=== PATIENT | male | born 1975 | race Caucasian/White ===

== ENCOUNTER 2016-05-08 14:43 | Emergency (ER) ==
[2016-05-08 14:48] VITALS: BP 181/115; TEMP 98; BMI 26.5
--- NOTE | 2016-05-08 14:56 | ED.PDOC ---
General ED Provider: Dr. MARIANNE MARSHALL JR Chief Complaint: Nausea/Vomiting Stated Complaint: ag-vomiting diarrhea nasal/head congestion with loss of appetite[End]emesis x10 hourly or less bilious...fever, congestion, not feeling good . left ear hurting.[End]12 days 98.0 83 20 98% 181/115 09/28 Time Seen by Physician: 14:55 Information Source: Patient, Family Exam Limitations: No limitations Nursing and Triage Documentation Reviewed and Agree: No Review of Systems - Review Of Systems Constitutional: Reports: Chills, Malaise, Weakness Eyes: Reports: No symptoms Ears, Nose, Mouth, Throat: Reports: Nose discharge Respiratory: Reports: Cough Cardiac: Reports: No symptoms GI: Reports: Abdominal pain, Diarrhea, Nausea, Vomiting : Reports: No symptoms Musculoskeletal: Reports: No symptoms Skin: Reports: No symptoms Neurological: Reports: No symptoms Endocrine: Reports: No symptoms Hematologic/Lymphatic: Reports: No symptoms All Other Systems: Other Past Medical History - Past Medical History Previously Healthy: Yes Endocrine: Reports: None Cardiovascular: Reports: Hypertension Respiratory: Reports: None Hematological: Reports: None Gastrointestinal: Reports: None Genitourinary: Reports: Kidney stones Neuro/Psych: Reports: Anxiety, Depression Musculoskeletal: Reports: None Cancer: Reports: None - Surgical History General Surgical History: Reports: Other (nerve cauterization to back) - Family History Family History: Reports: None - Social History Smoking Status: Current some day smoker Hx Substance Use: No Alcohol Screening: Occasionally - Immunizations Tetanus Shot up to Date: Yes Physical Exam - Physical Exam Appearance: Ill-appearing Ill-appearing: Moderate Pain Distress: Moderate Eyes: SUZY, EOMI, Conjunctiva clear ENT: Ears normal, Nose normal, Oropharynx normal Neck: Supple Respiratory: Airway patent, Breath sounds clear, Breath sounds equal, Respirations nonlabored Cardiovascular: RRR, Pulses normal, No rub, No murmur GI/: Soft, Nontender, No masses, Bowel sounds normal, No Organomegaly Musculoskeletal: Normal strength, ROM intact, No edema, No calf tenderness Skin: Warm, Dry, Normal color Neurological: Sensation intact, Motor intact, Reflexes intact, Cranial nerves intact, Alert, Oriented Psychiatric: Affect appropriate, Mood appropriate Interpretation - Radiology Interpretation Radiology Interpretation By: Radiologist Radiology Results: Negative Exam Interpreted: CXR Critical Care Note - Critical Care Note Total Time (mins): 5 Course - Course Hematology/Chemistry: 05/08/16 15:20 05/08/16 15:20 Orders, Labs, Meds: Lab Review 05/08/16 05/08/16 05/08/16 15:20 15:45 18:00 WBC 12.77 H RBC 4.83 Hgb 14.8 Hct 43.0 MCV 89.0 MCH 30.6 MCHC 34.4 RDW Coeff of Leandro 13.4 Plt Count 355 Immature Gran % (Auto) 0.4 Neut % (Auto) 68.2 Lymph % (Auto) 25.1 Sullivan % (Auto) 5.2 Eos % (Auto) 0.7 Baso % (Auto) 0.4 Immature Gran # (Auto) 0.1 Neut # 8.7 H Lymph # 3.2 Sullivan # 0.7 Eos # 0.1 Baso # 0.1 Sodium 138 Potassium 4.5 Chloride 103 Carbon Dioxide 23 Anion Gap 16.5 BUN 10 Creatinine 1.01 Estimated GFR (MDRD) 81.00 BUN/Creatinine Ratio 9.90 Glucose 94 Calcium 9.9 Total Bilirubin 0.64 AST 27 ALT 41 Alkaline Phosphatase 55 Total Protein 8.1 Albumin 4.6 Globulin 3.5 Albumin/Globulin Ratio 1.31 Amylase 98 Lipase 178 H Urine Color Yellow Urine Clarity Clear Urine pH 5.5 Ur Specific [place] 1.025 Urine Protein Negative Urine Glucose (UA) Negative Urine Ketones 1+ Urine Blood Negative Urine Nitrite Negative Urine Bilirubin Negative Urine Urobilinogen 0.2 Ur Leukocyte Esterase Negative Stl Occult Blood (IFOB) Negative Stool Occult Blood #2 No specimen received Stool Occult Blood #3 No specimen received H. pylori IgG Antibody Negative Orders Category Date Time Status C-DIFF MONITORING (NURSING) BID CARE 05/08/16 15:22 Active ED IV/MEDIPORT/POWERPORT .ONCE EMERGENCY 05/08/16 15:15 Active AMYLASE Stat LAB 05/08/16 15:20 Completed CBC W/ AUTO DIFF Stat LAB 05/08/16 15:20 Completed COMPREHENSIVE METABOLIC PANEL Stat LAB 05/08/16 15:20 Completed H. PYLORI SCREEN Stat LAB 05/08/16 15:20 Completed LIPASE Stat LAB 05/08/16 15:20 Completed OCCULT BLOOD, STOOL Stat LAB 05/08/16 18:00 Completed STOOL CULTURE Stat LAB 05/08/16 Ordered URINALYSIS C & S IF INDICATED Stat LAB 05/08/16 15:45 Completed cdiff [C. DIFFICILE] Routine LAB 05/08/16 15:21 Uncollected 0.9 % Sodium Chloride [Saline Flush] MEDS 05/08/16 15:15 Active 1 syr IVF PRN PRN Ciprofloxacin HCl [Cipro] MEDS 05/08/16 19:05 Discontinued 500 mg PO ONCE STA Ondansetron HCl/Pf [Zofran 4 mg/2 ml] MEDS 05/08/16 15:16 Discontinued 4 mg IVP ONCE STA Sodium Chloride 0.9% [Sodium Chloride] 1,000 ml MEDS 05/08/16 15:16 Discontinued IV BOLUS CHEST, 2 VIEWS PA & LAT Stat RADS 05/08/16 15:[address] ABDOMEN/PELVIS WO CONTRAST Stat RADS 05/08/16 15:15 Completed Medications Generic Name Dose Route Start Last Admin Trade Name Freq PRN Reason Stop Dose Admin Sodium Chloride 1 syr 05/08/16 15:15 05/08/16 15:57 Saline Flush IVF 1 syr PRN PRN Administration To flush IV Discontinued Medications Generic Name Dose Route Start Last Admin Trade Name Freq PRN Reason Stop Dose Admin Ciprofloxacin 500 mg 05/08/16 19:05 05/08/16 19:13 Cipro PO 05/08/16 19:06 500 mg ONCE STA Administration Sodium Chloride 1,000 mls @ 1,000 mls/hr 05/08/16 15:16 05/08/16 15:57 Sodium Chloride IV 05/08/16 16:15 1,000 mls/hr BOLUS STA Administration Ondansetron HCl 4 mg 05/08/16 15:16 05/08/16 15:57 Zofran 4 Mg/2 Ml IVP 05/08/16 15:17 4 mg ONCE STA Administration Vital Signs: Temp Pulse Resp BP Pulse Ox 05/08/16 14:45 98.0 F 83 20 181/115 H 98 Departure - Departure Time of Disposition: 16:31 Disposition: HOME SELF-CARE Discharge Problem: Gastroenteritis Instructions: Dehydration (ED), Gastroenteritis (ED) Condition: Fair Pt referred to PMD for follow-up: Yes Additional Instructions: PEPTOBISMOL AFTER EACH LOOSE STOOL UP TO 8 TIMES IN 24 HOURS cipro twice a day for one week CLEAR LIQUIDS FOR 12 HOURS AND UNTIL NAUSEA CONTROLLED ZOFRAN FOR NAUSEA OR MAY USE PHENERGAN FOR NAUSEA Prescriptions: Ciprofloxacin HCl [Cipro] 500 mg PO BID #14 tablet Ondansetron HCl [Zofran Tab] 4 mg PO QID PRN #12 tablet PRN Reason: Nausea / Vomiting Promethazine HCl [Phenergan Tab] 25 mg PO QID PRN #12 tablet PRN Reason: Nausea / Vomiting Allergies/Adverse Reactions: Allergies codeine Adverse Reaction (Verified 12/11/15 20:22) Hives Home Medications: Ambulatory Orders Clonazepam [Klonopin] 0.5 mg PO DAILY 06/30/15 Escitalopram Oxalate [Lexapro] 5 mg PO DAILY 06/30/15 Losartan Potassium [Cozaar] 50 mg PO DAILY 06/30/15 Ciprofloxacin HCl [Cipro] 500 mg PO BID #14 tablet 05/08/16 Ondansetron HCl [Zofran Tab] 4 mg PO QID PRN #12 tablet 05/08/16 Promethazine HCl [Phenergan Tab] 25 mg PO QID PRN #12 tablet 05/08/16
[2016-05-08] MEDS ORDERED: ZOFRAN 4 MG/2 ML IVP STA (15:16)
[2016-05-08] MEDS ORDERED: SODIUM CHLORIDE 1,000 ML IV STA (15:16)
[2016-05-08 15:28] LABS: BASOPHILS # (AUTO) 0.1 K/uL (0-0.2); BASOPHILS % (AUTO) 0.4 % (0.0-3.0); EOSINOPHILS # (AUTO) 0.1 K/ul (0.0-0.7); EOSINOPHILS % (AUTO) 0.7 % (0.0-7.0); HEMOGLOBIN 14.8 g/dl (14.0-18.0); IMMATURE GRANULOCYTE % (AUTO) 0.4 % (0.0-5.0); LYMPHOCYTES # (AUTO) 3.2 K/uL (0.60-3.4); LYMPHOCYTES % (AUTO) 25.1 (10.0-50.0); MEAN CORPUSCULAR HEMOGLOBIN 30.6 pg (27.0-31.0); MEAN CORPUSCULAR HGB CONC 34.4 (31.8-35.4); MONOCYTES # (AUTO) 0.7 K/uL (0.4-2.0); MONOCYTES % (AUTO) 5.2 (0-10); NEUTROPHILS # (AUTO) 8.7 K/ul (2.0-6.9); NEUTROPHILS % (AUTO) 68.2; PLATELET COUNT 355 10^3/uL (140-440); RED BLOOD COUNT 4.83 10^6/ul (4.70-6.10); WHITE BLOOD COUNT 12.77 K/ul (4.2-10.2)
[2016-05-08 15:42] LABS: H. PYLORI ANTIBODY NEGATIVE (NEGATIVE); H.PYLORI INTERNAL QC INTERNAL QC VALID
--- NOTE | 2016-05-08 15:44 | DI ---
EXAM: CHEST FRONTAL AND LATERAL VIEWS HISTORY: Cough. COMPARISON: 12/11/2015 FINDINGS: Heart size and mediastinal contour within normal limits. No acute infiltrates. Mery l vascularity with no pleural fluid or pneumothorax. The bony thorax has no acute finding. IMPRESSION: No acute process.
[2016-05-08 15:48] LABS: ALBUMIN 4.6 g/dL (3.4-5.0); ALBUMIN/GLOBULIN RATIO 1.31; ANION GAP 16.5; BILIRUBIN,TOTAL 0.64 mg/dL (0.00-1.20); BUN/CREATININE RATIO 9.9; CALCIUM 9.9 mg/dL (8.2-10.2); CREATININE 1.01 mg/dL (0.60-1.10); POTASSIUM 4.5 mmol/L (3.5-5.1); TOTAL PROTEIN 8.1 g/dL (6.4-8.2)
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
[2016-05-08 16:13] LABS: BILIRUBIN,URINE Negative (NEGATIVE); KETONES,URINE 1+ (NEGATIVE); LEUKOCYTE ESTERASE ,URINE Negative (NEGATIVE); NITRITE,URINE Negative (NEGATIVE); PH,URINE 5.5 (5-9); PROTEIN,URINE Negative (NEGATIVE); URINE, BLOOD Negative (NEGATIVE)
[2016-05-08 16:15] LABS: ADD URINE MICROSCOPIC NO
[2016-05-08 18:22] LABS: OCCULT BLOOD INTERNAL QC 1 INTERNAL QC VALID; OCCULT BLOOD INTERNAL QC 2 INTERNAL QC VALID; OCCULT BLOOD INTERNAL QC 3 INTERNAL QC VALID; OCCULT BLOOD SAMPLE 1 NEGATIVE (NEGATIVE); OCCULT BLOOD SAMPLE 2 NO SPECIMEN RECEIVED (NEGATIVE); OCCULT BLOOD SAMPLE 3 NO SPECIMEN RECEIVED (NEGATIVE)
[2016-05-08] MEDS ORDERED: CIPRO PO STA (19:05)
== END 2016-05-08 19:17 | disposition home or self-care (01) ==
LOC: ED 14:43
DX: K52.9 Noninfective gastroenteritis and colitis, unspecified (principal); R05 Cough; I10 Essential (primary) hypertension; F17.210 Nicotine dependence, cigarettes, uncomplicated; Z79.899 Other long term (current) drug therapy
CPT/HCPCS: 36415; 80053; 81001; 82150; 82272; 83690; 85025; 86677; 96361; 96374; 99283

== ENCOUNTER 2016-10-18 13:08 | Outpatient (CLI) | END 2016-10-18 13:09 | disposition home or self-care (01) | LOC: CAR 13:08 | PROVIDERS: ATTEND Physician Assistant | DX: R41.3 Other amnesia (principal) ==

== ENCOUNTER 2016-10-21 08:31 | Outpatient (CLI) ==
--- NOTE | 2016-10-21 09:24 | CT ---
EXAM: CT head without contrast. HISTORY: Transient memory loss COMPARISON: None TECHNIQUE: Routine axial CT images of the head were obtained without intravenous contrast. FINDINGS: The ventricles and cortical sulci are within normal limits. There is no hydrocephalus. T he cabrera-white matter differentiation is well maintained, with no evidence of territorial ischemia. There is no intracranial mass, mass effect or midline shift. No intraparenchymal hemorrhage, or ext ra-axial fluid collection is identified. Paranasal sinuses are clear. The bony calvarium is intact. Globes and orbits are symmetric and intac t. Locoregional soft tissues are grossly unremarkable. IMPRESSION: No acute intracranial abnormality. No CT evidence of territorial ischemia, acute hemorrhage, or int racranial mass.
== END 2016-10-21 08:32 | disposition home or self-care (01) ==
LOC: RAD 08:31
PROVIDERS: ATTEND Physician Assistant
DX: R41.3 Other amnesia (principal)

== ENCOUNTER 2017-04-02 16:03 | Outpatient (CLI) | END 2017-04-02 16:04 | disposition home or self-care (01) | LOC: LAB 16:03 | PROVIDERS: ATTEND Emergency Medicine | DX: J06.9 Acute upper respiratory infection, unspecified (principal) | CPT/HCPCS: 87651; 87880 ==

== ENCOUNTER 2017-06-27 10:27 | Outpatient (CLI) | END 2017-06-27 10:28 | disposition home or self-care (01) | LOC: RHC-LAB 10:27 | PROVIDERS: ATTEND Emergency Medicine | DX: N52.8 Other male erectile dysfunction (principal); Z12.5 Encounter for screening for malignant neoplasm of prostate; I10 Essential (primary) hypertension; F33.1 Major depressive disorder, recurrent, moderate; F41.1 Generalized anxiety disorder | CPT/HCPCS: 36415; 80061; 83001; 83002; 84403; 84443 ==

== ENCOUNTER 2017-07-17 11:08 | Outpatient (CLI) ==
--- NOTE | 2017-07-17 12:34 | DI ---
Exam: Two x-rays of the chest. Comparison: 05/08/2016. Reason for exam: Upper respiratory infection. FINDINGS: No pneumothorax, pleural effusion, or focal consolidation. The cardiac silhouette is not enlarged. The imaged osseous structures appear grossly unremarkable without acute fracture. Impression: No acute cardiopulmonary process.
== END 2017-07-17 11:09 | disposition home or self-care (01) ==
LOC: RHC-LAB 11:08 → RAD 11:09
PROVIDERS: ATTEND Emergency Medicine
DX: R68.89 Other general symptoms and signs (principal); J06.9 Acute upper respiratory infection, unspecified
CPT/HCPCS: 87651; 87804

== ENCOUNTER 2017-08-06 20:51 | Emergency (ER) ==
[2017-08-06 21:03] VITALS: BP 136/98; TEMP 98.1; BMI 25.1
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
[2017-08-06] MEDS ORDERED: NORCO 7.5-325 PO STA (23:18)
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
== END 2017-08-06 23:28 | disposition home or self-care (01) ==
LOC: ED 20:51
DX: S60.222A Contusion of left hand, initial encounter (principal); S09.90XA Unspecified injury of head, initial encounter; M54.9 Dorsalgia, unspecified; T14.8XXA Other injury of unspecified body region, initial encounter; F17.210 Nicotine dependence, cigarettes, uncomplicated; V86.99XA Unspecified occupant of other special all-terrain or other off-road motor vehicle injured in nontraffic accident, initial encounter
CPT/HCPCS: 99283

== ENCOUNTER 2018-05-27 15:00 | Outpatient (CLI) | END 2018-05-27 15:01 | disposition home or self-care (01) | LOC: RHC-LAB 15:00 → FCC-LAB 15:01 | PROVIDERS: ATTEND Nurse Practitioner Family | DX: I10 Essential (primary) hypertension (principal); F41.1 Generalized anxiety disorder; Z51.81 Encounter for therapeutic drug level monitoring | CPT/HCPCS: 36415; 80053; 80306; 85025 ==

== ENCOUNTER 2018-07-14 09:57 | Outpatient (CLI) ==
--- NOTE | 2018-07-15 08:43 | DI ---
EXAM: Lumbar spine three view HISTORY: Lumbar facet joint arthropathy COMPARISON: 12/09/2016 FINDINGS: Sacroiliac joints intact. Sacral arcuate intact. Vertebral bodies normal height. No fra cture. Mild intervertebral disc space narrowing L4-L5. Small multilevel marginal osteophytes. Sugg estion of facet arthrosis in the lower spine. Spina bifida occulta suggested at L5 and S1. IMPERSSION: Mild chronic discogenic degenerative disease and facet arthrosis.
== END 2018-07-14 09:58 | disposition home or self-care (01) ==
LOC: RAD 09:57
PROVIDERS: ATTEND Pain Medicine Interventional Pain Medicine
DX: M47.816 Spondylosis without myelopathy or radiculopathy, lumbar region (principal); M47.817 Spondylosis without myelopathy or radiculopathy, lumbosacral region; M48.061 Spinal stenosis, lumbar region without neurogenic claudication; M48.07 Spinal stenosis, lumbosacral region; M51.16 Intervertebral disc disorders with radiculopathy, lumbar region; M51.36 Other intervertebral disc degeneration, lumbar region

== ENCOUNTER 2018-08-27 15:39 | Outpatient (CLI) | END 2018-08-27 15:40 | disposition home or self-care (01) | LOC: RHC-LAB 15:39 → FCC-LAB 15:40 | PROVIDERS: ATTEND Nurse Practitioner Family | DX: Z51.81 Encounter for therapeutic drug level monitoring (principal); Z79.899 Other long term (current) drug therapy | CPT/HCPCS: 80306 ==

== ENCOUNTER 2018-10-13 23:54 | Outpatient (CLI) | END 2018-10-14 00:19 | disposition short-term general hospital (02) | LOC: AMBL 23:54 | PROVIDERS: ATTEND Family Medicine | DX: R55 Syncope and collapse (principal); F12.10 Cannabis abuse, uncomplicated; F14.10 Cocaine abuse, uncomplicated; F11.10 Opioid abuse, uncomplicated; R41.82 Altered mental status, unspecified; Z72.89 Other problems related to lifestyle ==

== ENCOUNTER 2018-12-17 10:00 | Outpatient (RCR) ==
--- NOTE | 2018-11-26 16:42 | RS.OPPTEV2 ---
Date of Note: 11/25/18 Visit #: 1 Number of visits approved by Insurance: pending Date of Evaluation: 11/25/18 Payer Source: Medicaid Treatment Diagnosis: Low back pain, lumbar spondylosis, History of Condition/Mechanism of Injury:: Pain began in 2010, no definite injury noted. pt had been a patient of pain management and medicaid denied further visits . Prior Level of Function.....Patient was independent with: ADL's, Self Care, Caregiving, Ambulation/Mobility, Community Integration/Access Level of Function: pt does not work at this time due to back pain Functional Limitations: Sleep, ADL's, Lifting, Carrying, Standing, Bending, Squatting, Ambulation, Community Access/Integration Current Subjective/complaints:: pt states that he has to come to therapy to get medicaid to approve MRI. States that he has had therapy in the past but not in the last 5 years. Treatment Side (optional): N/A Medical History Medical History: Hypertension, Arthritis Smoking Status: Current some day smoker Hx Home Medications: mobic, baclofen, losartan, gabapentin, wellbutrin, lexapro Patient's Goals: decrease back pain and get MRI Pain Assessment - Pain Description Pain Location: low back radiating into B buttocks Pain Description: Radiating, Aching Current Pain Intensity: 7/10 Other Comments regarding Pain:: States he gets no pain medicine at this time and pain has increased. Functional Outcome Measure Oswestry LBP: 39 - G Codes & Severity Modifier G Codes & Modifier: n/a Source of G Code score: n/a Observation - Observation Posture: Forward Head, Rounded Shoulders Handedness: Right Gait - Gait Pattern General Gait Pattern Observation: No Deviations/Normal General Range of Motion: BUE WFL's. BLE WFL's Muscle Strength: BUE 5/5. BLE 5/5 - ROM Lumbar Flexion: Hand reach to patellae Sidebending to Left: Reach to Lateral Joint Line Sidebending to Right: Reach to Lateral Joint Line Lumbar Spine ROM Limitations: Soft Tissue Tightness, Muscle Weakness, Pain Comments: pt with increased pain with flex, pain decreases with ext - Strength Trunk Extension: 4 Good Trunk Flexion: 3- Fair- Trunk Lateral Flexion: 3- Fair- - Special Tests SLR Test: Positive Left, Positive Right Seated Dural Stretch Test: Positive Left, Positive Right SI Joint Compression: Negative Comments: pt also presents with BLE hamstring tightness L worse than R Palpation Palpation Findings: Tenderness, Muscle Guarding Comments:: tenderness noted to lumbar spine as well as muscle guarding Sensation - Sensation Right Upper Extremity: Intact/Normal Left Upper Extremity: Intact/Normal Right Lower Extremity: Intact/Normal Left Lower Extremity: Intact/Normal Balance - Sitting Balance Static Sitting Balance: Normal Dynamic Sitting Balance: Normal - Standing Balance Static Standing Balance: Normal Dynamic Standing Balance: Normal - Heat/Cryotherapy Treatment: Cryotherapy Comments:: lumbar spine Interventions - Exercise/Activities/Manual Therapy Exercises/Activities: pt performed knee to chest, hamstring stretch, piriformis stretch, standing ext stretch, instructed on prone lying. Manual Therapy: na HOME EXERCISE PROGRAM: pt given written HEP including: prone lying, prone on elbows, SKTC, hamstring stretch, piriformis stretch, and standing ext. - Charges Timed Code Treatment Minutes: 47 Total Treatment Time: 58 Procedures billed for this date of service:: eval low, CP EVALUATION COMPLEXITY LEVEL EVALUATION COMPLEXITY LEVEL: HISTORY: Low, EXAM OF BODY SYSTEMS: Low, CLINICAL PRESENTATION: Low, CLINICAL DECISION MAKING: Low Assessment Assessment: pt presents with LBP with muscle guarding noted in lumbar spine. pt also with decreased lumbar ROM with tightness noted in hamstring and piriformis. Feel pt may benefit from lumbar traction as well as stretching and core strengthening to decrease LBP and improve mobility. Patient Education: Home Exercise Program, Education of Plan of Care Rehab Potential: Good Short Term Goals Goal #1: pt independent with initial HEP Goal to be met by: 12/11/18 Goal #2: pt with improved hamstring flexibility Goal to be met by: 12/11/18 Goal #3: pt with decreased low back pain < 7/10 Goal to be met by: 12/11/18 Photoengraving Retoucher Goals Goal #1: pt with no reports of radiating pain into LE Goal to be met by: 12/25/18 Goal #2: pt with lumbar ROM WFL's Goal to be met by: 12/25/18 Goal #3: pt report that he able to perform normal household activities w less pain Goal to be met by: 12/25/18 Goal #4: pt rate pain < 5/10 lumbar spine Goal to be met by: 12/25/18 Plan - Treatment to be Provided Procedures: Therapeutic Exercises, Manual Therapy, Massage, Patient Education Modalities: Electrical Stimulation, Ultrasound/Phonophoresis, Cryotherapy, Hot Packs, Mechanical Traction - Treatment Plan Frequency: 2 X week Duration: 4 weeks Dates of Correction Goals: 12/25/18 Expiration date of current Insurance Approval:: pending - Treatment Code (1) Low back pain Code(s): M54.5 - LOW BACK PAIN Qualifiers: Chronicity: unspecified Back pain laterality: unspecified Sciatica presence: with sciatica Sciatica laterality: bilateral sciatica Qualified Code(s): M54.42 - Lumbago with sciatica, left side; M54.41 - Lumbago with sciatica, right side (2) Lumbar spondylosis Code(s): M47.816 - SPONDYLOSIS W/O MYELOPATHY OR RADICULOPATHY, LUMBAR REGION (3) Radiculopathy due to lumbar intervertebral disc disorder Code(s): M51.16 - INTERVERTEBRAL DISC DISORDERS W RADICULOPATHY, LUMBAR REGION
--- NOTE | 2018-12-04 13:06 | RS.OPPTDN ---
Subjective Date of Note: 12/04/18 Visit #: 2 Number of visits approved by Insurance: pending Date of Evaluation: 11/25/18 Payer Source: Medicaid Treatment Diagnosis: Low back pain, lumbar spondylosis, Current Subjective/complaints:: Patient reports in low back and L buttocks today. Pain Assessment - Pain Description Pain Location: lumbar and L buttock Pain Description: Radiating, Dull, Aching Current Pain Intensity: 7/10 - Treatment Modality: Ultrasound Parameters/Method Applied: 10 mins. @ 1.5 w/cm2 ,cont. mode to lumbar. Patient Position: Right Sidelying - Heat/Cryotherapy Treatment: Hot Pack (15 mins. prior to US and ex) Interventions - Exercise/Activities/Manual Therapy Exercises/Activities: Pt performed pelvic tilts,SKTC,DKTC , hamstring stretch , piriformis stretch.SI muscle eneegy ,patient education for positioning and pressure relief form LBP. Total minutes of Exercise: 35 Manual Therapy: na Total minutes of Manual Therapy: 0 HOME EXERCISE PROGRAM: pt given written HEP including: prone lying, prone on elbows, SKTC, hamstring stretch, piriformis stretch, and standing ext. - Charges Timed Code Treatment Minutes: 45 Total Treatment Time: 60 Procedures billed for this date of service:: hp,US,ex ,ther. act Assessment: Patient has improved hamstring extensibility after stretches today.He reports relief of back pain ,reduced to 4/10.He is attentive to recommendations of the therapy staff. Patient Education: Education of diagnosis, Body/Joint mechanics, Home Exercise Program, Home Safety, Activity Modification, Education of Plan of Care Patient demonstrates compliance with HEP?: Yes Short Term Goals Goal #1: pt independent with initial HEP Goal to be met by: 12/11/18 Progress towards Goal:: Progressing Goal #2: pt with improved hamstring flexibility Goal to be met by: 12/11/18 Progress towards Goal:: Progressing Goal #3: pt with decreased low back pain < 7/10 Goal to be met by: 12/11/18 Inseam Trimmer Goals Goal #1: pt with no reports of radiating pain into LE Goal to be met by: 12/25/18 Goal #2: pt with lumbar ROM WFL's Goal to be met by: 12/25/18 Goal #3: pt report that he able to perform normal household activities w less pain Goal to be met by: 12/25/18 Goal #4: pt rate pain < 5/10 lumbar spine Goal to be met by: 12/25/18 Plan Dates of [facility] Goals: 12/25/18 Expiration date of current Insurance Approval:: 12/25/18 PLAN: Cont. skilled PT to reduce /eliminate LBP .
--- NOTE | 2018-12-07 13:05 | RS.CXNS ---
Date of scheduled appointment: 12/07/18 Type: Cancel Reason for Cancel/NS: Patient called ,reports geting stung by several red wasps today,unable to keep appt.
--- NOTE | 2018-12-11 14:07 | RS.OPPTDN ---
Subjective Date of Note: 12/11/18 Visit #: 3 Number of visits approved by Insurance: pending Date of Evaluation: 11/25/18 Payer Source: Medicaid Treatment Diagnosis: Low back pain, lumbar spondylosis, Current Subjective/complaints:: Patient reports the pain is about the same. Pain Assessment - Pain Description Pain Location: lumbar and buttocks Pain Description: Radiating, Dull, Aching, Chronic Current Pain Intensity: 7/10 - Treatment Modality: Ultrasound Parameters/Method Applied: 10 mins. @ 1.5 w/cm2 ,cont. mode to lumbar Patient Position: Right Sidelying - Heat/Cryotherapy Treatment: Hot Pack (20 mins. prior to US and exercises) Interventions - Exercise/Activities/Manual Therapy Exercises/Activities: Pt performed pelvic tilts,SKTC,DKTC , hamstring stretch , piriformis stretch.SI muscle energy . Total minutes of Exercise: 25 Manual Therapy: na Total minutes of Manual Therapy: 0 HOME EXERCISE PROGRAM: pt given written HEP including: prone lying, prone on elbows, SKTC, hamstring stretch, piriformis stretch, and standing ext. - Charges Timed Code Treatment Minutes: 35 Total Treatment Time: 55 Procedures billed for this date of service:: hp,US,ex 2 Assessment: Patient has no change in pain level today ,whether in supine or prone position.He has good return demo of each exercise.He does have slight increased tightness in the L hip ,as compared to the right.We discussed the POC for next week,and if no change in pain ,we will initiate the D/C plan. Patient Education: Education of diagnosis, Body/Joint mechanics, Home Exercise Program, Home Safety, Activity Modification, Education of Plan of Care Patient demonstrates compliance with HEP?: Yes Short Term Goals Goal #1: pt independent with initial HEP Goal to be met by: 12/11/18 Progress towards Goal:: Met Goal #2: pt with improved hamstring flexibility Goal to be met by: 12/11/18 Progress towards Goal:: Progressing Goal #3: pt with decreased low back pain < 7/10 Goal to be met by: 12/11/18 Progress towards Goal:: No Change Rest Room Attendant Goals Goal #1: pt with no reports of radiating pain into LE Goal to be met by: 12/25/18 Progress towards goal: No Change Goal #2: pt with lumbar ROM WFL's Goal to be met by: 12/25/18 Progress towards goal: Progressing Goal #3: pt report that he able to perform normal household activities w less pain Goal to be met by: 12/25/18 Progress towards goal: No Change Goal #4: pt rate pain < 5/10 lumbar spine Goal to be met by: 12/25/18 Progress towards goal: No Change Plan Dates of Rest Room Attendant Goals: 12/25/18 Expiration date of current Insurance Approval:: 12/25/18 PLAN: Cont. skilled PT to reduce/eliminate LBP.
--- NOTE | 2018-12-14 10:05 | RS.OPPTDN ---
Subjective Date of Note: 12/14/18 Visit #: 4 Number of visits approved by Insurance: pending Date of Evaluation: 11/25/18 Payer Source: Medicaid Treatment Diagnosis: Low back pain, lumbar spondylosis, Current Subjective/complaints:: Patient continuesto reports the pain level stays about the same.He reports minimal activity over the weekend. Pain Assessment - Pain Description Pain Location: lumbar and buttocks Pain Description: Radiating, Dull, Aching, Chronic Current Pain Intensity: 7/10 - Treatment Modality: Ultrasound Parameters/Method Applied: 10 mins. @ 1.5 w/cm2.cont. mode to lumbar /hips - Heat/Cryotherapy Treatment: Hot Pack (20 mins. prior to US) Interventions - Exercise/Activities/Manual Therapy Exercises/Activities: Pt performed pelvic tilts,SKTC,DKTC , hamstring stretch , piriformis stretch , lower trunk rotation , SI muscle energy .Reviewed Prone on elbows ,prone partial push-ups.Added standing IT band stretches,gives return demo. Total minutes of Exercise: 30 Manual Therapy: na HOME EXERCISE PROGRAM: pt given written HEP including: prone lying, prone on elbows, SKTC, hamstring stretch, piriformis stretch, and standing ext. - Charges Timed Code Treatment Minutes: 40 Total Treatment Time: 60 Procedures billed for this date of service:: hp,US,ex ,TA Assessment: Patient has improved understanding of body mechanics ,and HEP.He reports temporary relief only ,no significant change in pain level.He understands the POC is to begin D/C plan after next session. Patient Education: Education of Plan of Care Patient demonstrates compliance with HEP?: Yes Short Term Goals Goal #1: pt independent with initial HEP Goal to be met by: 12/11/18 Progress towards Goal:: Met Goal #2: pt with improved hamstring flexibility Goal to be met by: 12/11/18 Progress towards Goal:: Progressing Goal #3: pt with decreased low back pain < 7/10 Goal to be met by: 12/11/18 Progress towards Goal:: No Change Half-Way Goals Goal #1: pt with no reports of radiating pain into LE Goal to be met by: 12/25/18 Progress towards goal: Partially Met (radiates into buttocks only today,none in the LE) Goal #2: pt with lumbar ROM WFL's Goal to be met by: 12/25/18 Progress towards goal: Progressing Goal #3: pt report that he able to perform normal household activities w less pain Goal to be met by: 12/25/18 Progress towards goal: No Change Goal #4: pt rate pain < 5/10 lumbar spine Goal to be met by: 12/25/18 Progress towards goal: No Change Plan Dates of Half-Way Goals: 12/25/18 Expiration date of current Insurance Approval:: 12/25/18 PLAN: Cont. skilled PT ,initiate D/C after next session if no change in symptoms.
--- NOTE | 2018-12-17 11:00 | RS.OPPTDN ---
Subjective Date of Note: 12/17/18 Visit #: 5 Number of visits approved by Insurance: pending Date of Evaluation: 11/25/18 Payer Source: Medicaid Treatment Diagnosis: Low back pain, lumbar spondylosis, Current Subjective/complaints:: Patient reports no change ,no temporary relief either after therapy sessions. Pain Assessment - Pain Description Pain Location: lumbar ,radiating into buttocks Pain Description: Radiating, Dull, Aching Pain Description: constant Current Pain Intensity: 7/10 - Heat/Cryotherapy Treatment: Hot Pack (20 mins prior to exercises) Interventions - Exercise/Activities/Manual Therapy Exercises/Activities: Pt performed pelvic tilts,SKTC,DKTC , hamstring stretch , piriformis stretch , lower trunk rotation , SI muscle energy .Instructed in use of wand for resistance to do SI muscle energy on his own for leg length discrepancy at home . Total minutes of Exercise: 35 Manual Therapy: na Total minutes of Manual Therapy: 0 HOME EXERCISE PROGRAM: pt given written HEP including: prone lying, prone on elbows, SKTC, hamstring stretch, piriformis stretch, and standing ext. - Charges Timed Code Treatment Minutes: 35 Total Treatment Time: 55 Procedures billed for this date of service:: hp,ex 2,ther. act Assessment: No significant change ,reports the pain intensity is the same ,and is constant.He has good understanding of HEP ,gives return demo ,but does not change his symptoms.Patient status discussed with supervising PT,and will D/C today. Patient Education: Education of diagnosis, Body/Joint mechanics, Home Exercise Program, Home Safety, Activity Modification, Education of Plan of Care Patient demonstrates compliance with HEP?: Yes Short Term Goals Goal #1: pt independent with initial HEP Goal to be met by: 12/11/18 Progress towards Goal:: Met Goal #2: pt with improved hamstring flexibility Goal to be met by: 12/11/18 Progress towards Goal:: Progressing Goal #3: pt with decreased low back pain < 7/10 Goal to be met by: 12/11/18 Progress towards Goal:: No Change Group Home Goals Goal #1: pt with no reports of radiating pain into LE Goal to be met by: 12/25/18 Progress towards goal: Partially Met (radiates into buttocks only today,none in the LE) Goal #2: pt with lumbar ROM WFL's Goal to be met by: 12/25/18 Progress towards goal: No Change Goal #3: pt report that he able to perform normal household activities w less pain Goal to be met by: 12/25/18 Progress towards goal: No Change Goal #4: pt rate pain < 5/10 lumbar spine Goal to be met by: 12/25/18 Progress towards goal: No Change Plan Dates of Group Home Goals: 12/25/18 Expiration date of current Insurance Approval:: 12/25/18 PLAN: D/C due to no significant progress made toward rehab goals.
--- NOTE | 2018-12-17 15:59 | RS.OPPTDC ---
Date of Discharge: 12/17/18 Date of Evaluation: 11/25/18 Number of Visits: 5 Treatment Diagnosis: Low back pain, lumbar spondylosis, Current Level of Function: pt currently rates pain 7/10 constant pain. Reports pain in low back radiating into buttocks. pt continues with hamstring and piriformis tightness. pt is independent with HEP. Oswestry LBP scale remains at a 39 same as eval. Current Complaints/Gains: pt reports he has had no improvement with PT. Reports pain has remained the same 7/10 constant. No goals met. Functional Outcome Measure Oswestry LBP: 39 - G Codes & Severity Modifier G Codes & Modifier: n/a Source of G Code score: n/a Observation - Observation Posture: Forward Head, Rounded Shoulders, Decreased Lumbar Lordosis Gait - Gait Pattern General Gait Pattern Observation: No Deviations/Normal Interventions - Exercise/Activities/Manual Therapy Exercises/Activities: n/a: see final visit note Manual Therapy: na HOME EXERCISE PROGRAM: pt given written HEP including: prone lying, prone on elbows, SKTC, hamstring stretch, piriformis stretch, and standing ext. - Charges Timed Code Treatment Minutes: n/a Total Treatment Time: n/a Procedures billed for this date of service:: n/a Assessment Assessment: pt has met STG 1, has been unable to meet remaining goals due to continued pain in low back radiating into buttocks. pt feels he is not improving with PT. Patient Education: Home Exercise Program, Education of Plan of Care Rehab Potential: Fair Short Term Goals Goal #1: pt independent with initial HEP Goal to be met by: 12/11/18 Progress towards Goal:: Met Goal #2: pt with improved hamstring flexibility Goal to be met by: 12/11/18 Progress towards Goal:: Progressing Goal #3: pt with decreased low back pain < 7/10 Goal to be met by: 12/11/18 Progress towards Goal:: No Change Detention Goals Goal #1: pt with no reports of radiating pain into LE Goal to be met by: 12/25/18 Progress towards goal: Partially Met (radiates into buttocks only today,none in the LE) Goal #2: pt with lumbar ROM WFL's Goal to be met by: 12/25/18 Progress towards goal: No Change Goal #3: pt report that he able to perform normal household activities w less pain Goal to be met by: 12/25/18 Progress towards goal: No Change Goal #4: pt rate pain < 5/10 lumbar spine Goal to be met by: 12/25/18 Progress towards goal: No Change Plan Reason for Discharge:: Maximum Potential Met Comments: pt requests dc due to no progress
== END 2018-12-19 23:59 ==
PROVIDERS: ATTEND Neurological Surgery
DX: M47.816 Spondylosis without myelopathy or radiculopathy, lumbar region (principal)